=== PATIENT | female | born 1975 | race Caucasian/White ===

== ENCOUNTER 2020-04-15 01:19 | Emergency (ER) | payer OTHER ==
[~2020-04-15] VITALS: Ht 160 cm; Wt 45.4 kg
[2020-04-15] MEDS ORDERED: BUSP10TA3 PO (01:27)
[2020-04-15] MEDS ORDERED: FLUO20CA36 PO (01:27)
[2020-04-15] MEDS ORDERED: LAMO200T2 PO (01:27)
[2020-04-15] MEDS ORDERED: CLONAZEPAM 0.5 MG TABLET ONE (02:01)
[2020-04-15] MEDS ORDERED: ACETAMINOPHEN ES 500 MG TABLET ONE (02:10)
[2020-04-15] MEDS ORDERED: CEphaleXIN 500 MG CAPSULE ONE (02:10)
[2020-04-15] MEDS ORDERED: SODIUM BICARBONATE 4.2 % (NEUT) 5 ML VIAL TP ONE (02:15)
[2020-04-15] MEDS ORDERED: CLONAZEPAM 0.5 MG TABLET PO ONE (02:15)
[2020-04-15] MEDS ORDERED: CEphaleXIN 500 MG CAPSULE PO ONE (02:15)
[2020-04-15] MEDS ORDERED: LIDOCAINE 1%-EPI 1:100,000 20 ML VIAL IJ ONE (02:15)
[2020-04-15] MEDS ORDERED: ACETAMINOPHEN ES 500 MG TABLET PO ONE (02:15)
--- NOTE | 2020-04-15 02:19 | NUR ---
Patient discharged to home in stable condition. Written and verbal after care instructions given. Patient verbalizes understanding of instructions. Stressed follow up or return to ER for worsening s/s. Patient's parents are driving her home.
[2020-04-15 02:20] VITALS: BP 133/50
== END 2020-04-15 02:20 | disposition home or self-care (01) ==
LOC: ER 01:21
DX: S01.111A Laceration without foreign body of right eyelid and periocular area, initial encounter (principal); S02.2XXA Fracture of nasal bones, initial encounter for closed fracture; S00.83XA Contusion of other part of head, initial encounter; W06.XXXA Fall from bed, initial encounter; Y92.013 Bedroom of single-family (private) house as the place of occurrence of the external cause; H50.9 Unspecified strabismus; Z88.2 Allergy status to sulfonamides
CPT/HCPCS: 12013; 99284; J3490 ×2; A4663; A9150